=== PATIENT | male | born 2005 | race African-American/Black ===

== ENCOUNTER 2025-01-23 09:08 | Emergency (ER) | payer OTHER ==
[~2025-01-23] VITALS: Ht 165.1 cm; Wt 68.2 kg
[2025-01-23 09:13] VITALS: TEMP 98.7
[2025-01-23 10:00] LABS: PLATELET COUNT (AUTO) 236 K/uL (150-450); RED BLOOD CELL COUNT(AUTO) 5.70 MIL/uL (4.50-5.90); RED CELL DISTRIBUTION WIDTH 12.9 % (11.5-14.5); WHITE BLOOD COUNT (AUTO) 9.2 K/uL (4.5-11.0)
[2025-01-23 10:09] LABS: CALCIUM, TOTAL 9.7 mg/dL (8.8-10.5); CREATININE 1.12 mg/dL (0.60-1.30); GLOMERULAR FILTR. RATE CALC > 60 mL/min (>60); GLUCOSE,RANDOM 141 mg/dL (70-110); SODIUM SERUM 139 mmol/L (136-145); UREA NITROGEN, BLOOD 14 mg/dL (7-18)
[2025-01-23] MEDS: SODIUM CHLORIDE 0.9% 1,000 ML IV ONE (10:17)
[2025-01-23] MEDS: ONDANSETRON HCL 4 MG/2 ML VIAL IVP ONE (10:18)
[2025-01-23] MEDS: FAMOTIDINE 20 MG/2 ML VIAL IVP ONE (10:19)
[2025-01-23 13:34] VITALS: BP 135/90; PULSE 84; RESP 20; O2SAT 99
== END 2025-01-23 13:36 | disposition home or self-care (01) ==
LOC: EMS 09:12
DX: R10.31 Right lower quadrant pain (principal); R19.7 Diarrhea, unspecified; F12.90 Cannabis use, unspecified, uncomplicated; Z87.19 Personal history of other diseases of the digestive system
CPT/HCPCS: 99285; 74176; 96374; 96361; 96375; 80048; 83690; 85025; 36415; J3490; J2405; J7030